=== PATIENT | male | born 1970 | race Caucasian/White ===

== ENCOUNTER 2018-10-01 16:47 | Emergency (ER) | payer OTHER ==
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
[2018-10-01] MEDS ORDERED: DIPH/PERTUSS(ACELL)/TETANUS VAC/PF 0.5 ML SYR (>=10YO) IM ONE (17:39)
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
[2018-10-01] MEDS ORDERED: AMOXICILLIN TR/POT CLAVULANATE 500-125 MG TAB PO ONE (17:44)
[2018-10-01 18:27] VITALS: BP 118/72
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
== END 2018-10-01 18:26 | disposition home or self-care (01) ==
LOC: ER 16:47
DX: S62.304A Unspecified fracture of fourth metacarpal bone, right hand, initial encounter for closed fracture (principal); S62.306A Unspecified fracture of fifth metacarpal bone, right hand, initial encounter for closed fracture; W22.09XA Striking against other stationary object, initial encounter; F17.210 Nicotine dependence, cigarettes, uncomplicated; E78.00 Pure hypercholesterolemia, unspecified; I10 Essential (primary) hypertension; E11.9 Type 2 diabetes mellitus without complications; Z23 Encounter for immunization; Z79.4 Long term (current) use of insulin
CPT/HCPCS: 90471; 90715; 99283; 99406

== ENCOUNTER 2019-03-31 00:03 | Emergency (ER) | payer OTHER ==
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
[2019-03-31] MEDS ORDERED: HYDROCODONE/ACETAMINOPHEN 10-325 MG TABLET PO ONE (01:19)
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
[2019-03-31 04:10] VITALS: BP 119/68
== END 2019-03-31 04:07 | disposition home or self-care (01) ==
LOC: ER 00:03
DX: M25.552 Pain in left hip (principal); R07.81 Pleurodynia; M25.511 Pain in right shoulder; M54.2 Cervicalgia; M54.5 Low back pain; M54.6 Pain in thoracic spine; V59.50XA Passenger in pick-up truck or van injured in collision with unspecified motor vehicles in traffic accident, initial encounter; E78.00 Pure hypercholesterolemia, unspecified; I10 Essential (primary) hypertension; E11.9 Type 2 diabetes mellitus without complications; Z88.3 Allergy status to other anti-infective agents
CPT/HCPCS: 99284; 73502; 72110; 71101; 73030; 72070; 72125; L0120